=== PATIENT | female | born 1960 | race Caucasian/White ===

== ENCOUNTER 2025-03-01 11:55 | Emergency (ER) | payer BC, OTHER ==
[~2025-03-01] VITALS: Ht 170.2 cm; Wt 91.4 kg
[2025-03-01 11:56] VITALS: BP 150/80; PULSE 83; RESP 16; TEMP 98; O2SAT 97
[2025-03-01] MEDS ORDERED: rabies immune globulin/PF 150 unit/ml inj IMVAC STA (13:53)
--- NOTE | 2025-03-01 13:58 | Physician Documentation ---
History of Present Illness ~ Chief Complaint: Bite-animal Stated Complaint: DOG BITE Time Seen by MD: 13:20 Primary Medical Doctor: vaibhav Source: patient Mode of Arrival: POV Exam Limitations: no limitations HPI 64-year-old female was bit by her neighbor's dogs which were [place] santiago's leaving small abrasions to both hands. Patient is adamant on having the rabies vaccine and immunoglobulin dogs have unknown rabies vaccine and quarantine at home. Tetanus within 5 years?: No Medication Reconciliation Allergies: Coded Allergies: No Known Allergies (Unverified , 02/23/10) Past Medical History Past Medical History: No Pertinent History Past Surgical History: no surgical history Alcohol Use: None Drug Use: none Review of Systems All Other Systems at this time: Reviewed and Negative Integumentary: Reports: see HPI Physical Exam Vital Signs: RN Vital Signs have been reviewed: Yes, Temperature: 98.0, Source: Temporal, Heart Rate: 83, Respiratory Rate: 16, BP: 150/80, Pulse Oximetry: 97, Weight: 91.400 Oxygen Flow Rate: 0 Physical Exam General: Alert, no apparent distress. HEENT: moist mucous membranes. Neck: Full range of motion. Respiratory: No respiratory distress speaking in full sentences Chest: No accessory muscle use. Cardiovascular: Appears well perfused Neurologic: Oriented x4. Psychiatric: Normal mood and affect. Skin: Small superficial abrasions and puncture wounds to bilateral hands full range of motion no obvious infection or discharge Progress Results/Orders Results/Orders Orders - KIERRA PICKETT [facility] Rabies Vaccine (03/01/25 13:55) Rabies Immune Globulin/Pf Inj (Hyperrab (03/01/25 13:53) Vital Signs 03/01/25 11:56 Temp 98.0 Pulse 83 Resp 16 B/P (MAP) 150/80 Pulse Ox 97 O2 Flow Rate 0 Medical Decision Making Additional information obtaine: N/A Findings Patient is disgruntled and would like the rabies vaccine and immunoglobulin with extensive education on necessity. Patient is adamant. Differential Dx:Considerations: Include: Abrasion, Other Departure Time of Disposition: 13:57 Disposition: 01 HOME / SELF CARE / HOMELESS Impression: Primary Impression: Dog bite Condition: Stable Discharge Instructions: Animal Bite, Adult Additional Instructions: Rabies vaccine given at the time of the first medical visit, and a dose of vaccine given again on days 3, 7, and 14 after the first dose. Referrals: NO PRIMARY CARE PROVIDER (PCP) Education Educated: Patient Educated regarding: diagnosis, treatment, need for follow up Signature Scribe Signature: No scribe Attestation: The note accurately reflects work and decisions made by me.Kierra Pickett - JOHANNE 03/01/25 13:57 KIERRA PICKETT NP Mar 01, 2025 13:58
== END 2025-03-01 14:36 | disposition home or self-care (01) ==
LOC: ER 11:55
DX: S60.511A Abrasion of right hand, initial encounter (principal); S60.512A Abrasion of left hand, initial encounter; W54.0XXA Bitten by dog, initial encounter; Y93.89 Activity, other specified; Y92.89 Other specified places as the place of occurrence of the external cause; Y99.8 Other external cause status
CPT/HCPCS: 99282